=== PATIENT | male | born 1955 | race Asian ===

== ENCOUNTER 2017-08-24 10:22 | Emergency (ER) | payer OTHER ==
[~2017-08-24] VITALS: Ht 172.7 cm; Wt 74.8 kg
[2017-08-24 10:19] VITALS: BP 152/63; TEMP 98
[2017-08-24 11:00] LABS: PLATELET COUNT 295 K/uL (142-355)
[2017-08-24 11:06] VITALS: BP 132/76
[2017-08-24 11:07] LABS: POTASSIUM 4.2 mmol/L (3.6-5.2)
[2017-08-24 11:30] LABS: PARTIAL THROMBOPLASTIN TIME 29.3 SECONDS (24.5-33.6)
[2017-08-24 12:05] VITALS: BP 141/79
[2017-08-24 13:04] VITALS: BP 146/77
== END 2017-08-24 13:08 ==
LOC: ED 10:22 → MED/SURG 12:40 → ED 13:08
PROVIDERS: Emergency Medicine
DX: R07.89 Other chest pain (principal); R00.1 Bradycardia, unspecified
CPT/HCPCS: 36415; 80053; 82550; 83880; 84484; 85027; 85379; 85610; 85730; 93005; 99283